=== PATIENT | male | born 1975 | race African-American/Black ===

== ENCOUNTER 2024-07-02 02:05 | Day surgery (SDC) | payer OTHER, SELFPAY ==
[2024-06-21 12:42] VITALS: BMI 27.1
--- OUTSIDE RECORDS SUMMARY | 2024-07-02 02:08 | XMS_ITS | Clinical Summary ---
Author Organization 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 30 tablet 06/26/2018 Active Active Problems Problem Noted Date Diagnosed Date Rupture of right Achilles tendon, initial encoun ter 06/29/2018 Family History Relation Status Comments Father Alive Mother Alive Social History Tobacco Use Types Packs/Day Years Used Date Smoking Tobacco: Never Smokeless Tobacco: Never Alcohol Use Standard Drinks/Week Comments Yes 0 (1 standard drink = 0.6 oz pur e alcohol) Occasionally AUDIT-C Answer Date Recorded Frequency of Alcohol Consumption Never 06/26/2018 Average Number of Drinks Not on file 019 Frequency of Binge Drinking Not on file 04/2018 Sex and Gender Information Value Date Recorded Sex Assigned at Not on file Legal 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 Gender Identity Not on file Sexual Orientation Not on file Last Filed Vital Signs Vital Sign Reading Time Taken Comments Blood Pressure 134/74 12/02/2018 2:39 PM CDT Pulse 61 12/02/2018 2:39 PM CDT Temperature 36.6 C (97.9 F) 12/02/2018 2:39 PM CDT Respiratory Rate 20 06/26/2018 2:12 PM TOBACCO PRIZER Oxygen Saturation 98% 12/02/2018 2:39 PM CDT Inhaled Oxygen Concentration - - Weight 86.2 kg (190 lb) 12/02/2018 2:39 PM CDT Height 182.9 cm (6') 12/02/2018 2:39 PM CDT Body Mass Index 25.77 12/02/2018 2:39 PM CDT Plan of Treatment Health Maintenance Due Date Last Done Comments Colorectal Cancer Screening Colonoscopy (10 Years) 1973 Annual Physical 01/21/1976 Hepatitis C 1991 DTaP, Tdap and Td Vaccines ( 1 - Tdap) 01/21/1992 Hepatitis B Vaccines (1 of 3 - 19+ 3-dose series) 01/21/1992 Zoster Vaccines (1 of 2) 2023 COVID-19 Vaccine (1 - 2023-2 5 season) 2023 Influenza Adult (#1) 2024 Meningococcal B Vaccine Aged Out No l onger eligible based on patient's age to complete this topic Meningococcal Vaccine Aged Out No edna darius eligible based on patient's age to complete this topic Pneumococcal Vaccine: Pediat rics (0 to 5 Years) and At-Risk Patients (6 to 64 Years) Aged Out No longer eligible b ased on patient's age to complete this topic RSV Immunizations Under 20 Months Aged Out No longer eligible based on patient's age to complete this topic Insurance Care Teams Catshovel Driver Relationship Specialty Start Date End Date None, Provider, PCP - General 06/26/18
--- OUTSIDE RECORDS SUMMARY | 2024-07-02 02:08 | XMS_ITS | Clinical Summary ---
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 Name Role Phone Unavailable Primary Care Provider Unavailabl e Allergies No known active allergies Medications No known medications Active Problems No known active problems Family History Medical History Relation Name Comments No Known Problems Brother Heart Disease Father Unknown Maternal Grandfather Unknown Maternal Grandmother No Known Problems Mother Unknown Paternal Grandfather Unknown Paternal Grandmother No Known Problems Sister No Known Problems Son 1 No Known Problems Son 2 No Known Problems Son 3 Relation Name Status Comments Brother Alive Father Maternal Grandfather Maternal Grandmother Mother Alive Paternal Grandfather Paternal Grandmother Sister Alive Son 1 Alive Son 2 Alive Son 3 Alive Social History Tobacco Use Types Packs/Day Years Used Date Smoking Tobacco: Never Smokeless Tobacco: Never Alcohol Use Standard Drinks/Week Comments Yes 0 (1 standard drink = 0.6 oz pur e alcohol) occasionally Sex and Gender Information Value Date Recorded Sex Assigned at Not on file Legal Sex Male 10:44 PM CDT Gender Identity Not on file Sexual Orientation Not on file Last Filed Vital Signs Vital Sign Reading Time Taken Comments Blood Pressure 130/90 08/02/2021 10:00 AM CDT Pulse 55 08/02/2021 10:00 AM CDT Temperature 36 C (96.8 F) 08/02/2021 10:00 AM CDT Respiratory Rate 16 08/02/2021 10:00 AM CDT Oxygen Saturation 98% 08/02/2021 10:00 AM CDT Inhaled Oxygen Concentration - - Weight 95.7 kg (211 lb) 08/02/2021 10:00 AM CDT Height 182.9 cm (6') 08/02/2021 10:00 AM CDT Body Mass Index 28.62 08/02/2021 10:00 AM CDT Plan of Treatment Health Maintenance Due Date Last Done Comments DTAP/TDAP/TD VACCINES (1 - Tdap) 01/21/1992 HEPATITIS B VACCINES (1 of 3 - 19+ 3-dose series) 01/21/1992 COLORECTAL SCREENING 2018 Colorectal Cancer Screening 2018 FIT-DNA Q 3 years 2018 FIT/FOBT Q 1 year 2018 Flex Sig/CT Colonography Q 5 years 2018 ZOSTER VACCINE (1 of 2) 2023 INFLUENZA VACCINE (#1) 2023 02/26/2021 PNEUMOCOCCAL VACCINE 0-49 YEARS Aged Out No longer eligible based on patient's age to complete this topic Insurance ALLEGIANCE OPEN ACCESS
[2024-07-02 06:54] VITALS: BP 133/87; PULSE 59; RESP 18; TEMP 35.9; O2SAT 100; BMI 27.6
--- NOTE | 2024-07-02 07:14 | P.PNAN_ITS ---
Anes - Initial Pre Proc Eval Procedure: Operation Date: 07/02/24 08:00 Proposed Procedures p Screening Colonoscopy - Tono Couhc MD Date/Time: 07/02/24 07:14 Surgeon: Tono Couch MD Pre Op Diagnosis: Screening for malignant neoplasm of colon Patient Data Age: 49 Gender: M Height: 1.83 m Weight: 92.6 kg Last Vital Signs Temp 96.6 F L 07/02/24 06:54 Pulse 59 L 07/02/24 06:54 Resp 18 07/02/24 06:54 BP 133/87 07/02/24 06:54 Pulse Ox 100 07/02/24 06:54 O2 Del Method Room Air 07/02/24 06:54 Allergies Allergy/AdvReac Type Severity Reaction Status Date / Time No Known Allergies Allergy Verified 07/02/24 07:01 Home Medications ?Medication ?Instructions ?Recorded ?Confirmed ?Type No Home Medications 03/19/24 06/21/24 History Patient hx anesthesia problems: none Family hx anesthesia problems: none Results Review: All pre-operative results and documents have been reviewed as part of the pre-o perative evaluation. [facility] Past Medical History Medical History Prediabetes Hypertriglyceridemia Family History Family History Mother Patient's mother is in good health Father Patient's father is in good health Sibling Patient's sister is in good health Social History Social History Smoking status: Never smoker Second hand tobacco smoke exposure: No Alcohol intake: current Drinks per week: 3 Alcohol use details: 5-7 per week Substance use: never Substance use type: does not use Do You Feel Safe in your Home?: Yes Lack of Transportation: No Lack of Food: Never True Current Housing: I Have Housing Concerned About Future Housing: No Difficulty Paying Gas/Electric Bills: No Difficulty Paying for Meds: No Currently Unemployed: No Education: Trade/Vocational Certificate Difficulty w/ Childcare or Family Care: No Living arrangements: alone Spiritual care concerns: No Anes - Eval Final PreProcedure Day of Procedure 07/02/24 07:14 Patient weight: overweight Lungs: normal air movement Airway: Mallampati scale class II Neurological: alert and oriented Last oral intake: >/= 8 hours ASA classification: II Emergent: no Anesthetic plan: proceed Anesthesia type and monitoring: general GIVS and standard monitoring Results Review: All pre-operative results and documents have been reviewed as part of the pre- operative evaluation. Pre DM, borderline high triglycerides by chart review. Pt walks 1 fos, no cp or sob. Informed Consent: The patient's anesthetic plan and its attendant risks and benefits were discussed with the patient/family/POA. Questions were solicited and answers provided to the satisfaction of the patient/family/POA.
[2024-07-02] MEDS: LACTATED RINGERS 1,000 ML 150 ML IV CONT (07:18)
--- NOTE | 2024-07-02 08:05 | PM.IMHP ---
H&P: HPI History of Present Illness Date/Time: 07/02/24 08:05 Chief Complaint: Screening colonoscopy Narrative: This is the patient's first colonoscopy. There are no GI symptoms and there is no family history of colorectal cancer. Review of Systems Review of Systems: All systems reviewed & are unremarkable except as noted in HPI and below PMFSH Past Medical History Medical History Prediabetes Hypertriglyceridemia Family History Family History Mother Patient's mother is in good health Father Patient's father is in good health Sibling Patient's sister is in good health Social History Social History Smoking status: Never smoker Second hand tobacco smoke exposure: No Alcohol intake: current Drinks per week: 3 Alcohol use details: 5-7 per week Substance use: never Substance use type: does not use Do You Feel Safe in your Home?: Yes Lack of Transportation: No Lack of Food: Never True Current Housing: I Have Housing Concerned About Future Housing: No Difficulty Paying Gas/Electric Bills: No Difficulty Paying for Meds: No Currently Unemployed: No Education: Trade/Vocational Certificate Difficulty w/ Childcare or Family Care: No Living arrangements: alone Spiritual care concerns: No Meds Home Medications and Allergies Home Medications ?Medication ?Instructions ?Recorded ?Confirmed ?Type No Home Medications 03/19/24 06/21/24 History Allergies Allergy/AdvReac Type Severity Reaction Status Date / Time No Known Allergies Allergy Verified 07/02/24 07:01 Vital Signs Vital Signs - 24 hr 07/02/24 06:54 Temperature 96.6 F L Pulse Rate 59 L Respiratory Rate 18 Blood Pressure 133/87 Pulse Oximetry 100 Oxygen Delivery Room Air Exam Const: General: cooperative and healthy appearing Resp: Effort & Inspection: normal respiratory effort and able to speak in complete sentences Auscultation: clear to auscultation bilaterally Cardio: Rate: regular rate Rhythm: regular rhythm GI: Inspection: normal to inspection GI Palp: No No hepatosplenomegaly present Auscultation: normal bowel sounds Rectal Exam: deferred Skin: General skin exam: normal color Psych: Appearance: grossly normal Mental Status: mental status grossly normal Assessment and Plan Assessment and plan (1) Encounter for screening colonoscopy: Code(s): Z12.11 - Encounter for screening for malignant neoplasm of colon Status: Acute Assessment and Plan: The patient is deemed a good candidate for the procedure. Consent signed. Will proceed.
[2024-07-02] MEDS: SIMETHICONE ORAL SUSPENSION 20 MG/0.3 ML 30 ML BOTTLE 0.6 ML IRRIGATION (08:21)
[2024-07-02 08:32] VITALS: BP 101/60; PULSE 55; RESP 18; O2SAT 100
[2024-07-02 08:42] VITALS: BP 114/81; PULSE 51; RESP 17; O2SAT 100
[2024-07-02 08:52] VITALS: BP 132/88; PULSE 53; RESP 15; O2SAT 100
== END 2024-07-02 09:04 | disposition home or self-care (01) ==
PROVIDERS: PCP Family Medicine; Referring Provider Family Medicine; Visit Provider Internal Medicine Gastroenterology
PROC: 0DJD8ZZ Inspection of Lower Intestinal Tract, Via Natural or Artificial Opening Endoscopic (ICD-10-PCS; CPT 45378; principal; 2024-07-02 08:00)
DX: Z12.11 Encounter for screening for malignant neoplasm of colon (principal); R73.03 Prediabetes; E78.1 Pure hyperglyceridemia
CPT/HCPCS: 45378; J2003; J2704; J7120